=== PATIENT | female | born 1980 | race Caucasian/White ===

== ENCOUNTER 2016-10-16 18:28 | Emergency (ER) | payer BC ==
[~2016-10-16] VITALS: Ht 175.3 cm; Wt 78.0 kg
[2016-10-16 18:45] VITALS: TEMP 37.1; Ht 175.3 cm; Wt 78.0 kg
[2016-10-16] MEDS ORDERED: LEVOIUD INT UTER (19:11)
[2016-10-16] MEDS ORDERED: LORA10TA5 PO (19:11)
[2016-10-16] MEDS ORDERED: MULT1CHW44 PO (19:11)
--- NOTE | 2016-10-16 19:11 | EMERGENCY ROOM VISIT NOTE ---
History First contact with patient: 18:50 Chief Complaint: FINGER PAIN Stated Complaint: CUT FINGER ON RIGHT HAND History of Present Illness The patient is a 36 year old female who presents to the Emergency Room with complaints of a laceration to her right third finger while slicing squash with a mandolin slicer. The patient denies any significant bleeding. She did apply direct pressure and a bandage, and presents to the emergency department for further evaluation. The patient is [id number]. Tetanus immunization is up-to-date. The patient denies any significant pain on my exam. Review of Systems 6 system review was performed and was negative except for pertinent positives and negatives as indicated in history of present illness Past Medical/Surgical History Medical Problems: (1) Asthma Surgical Problems: (1) No history of previous surgery Family History FH: atrial fibrillation FH: cancer FH: hypertension Social History Smoking Status: Never Smoker Alcohol Use: occasionally Marital Status: Housing Status: lives with family Occupation Status: employed Physical Exam Vital Signs Date Time Temp Pulse Resp B/P Pulse Ox O2 Delivery O2 Flow Rate FiO2 10/16/16 18:45 37.1 86 18 159/91 100 Room Air Physical Exam CONSTITUTIONAL: Healthy and well nourished. Alert and oriented X 3 with positive affect. HEENT: Normocephalic, atraumatic. Pupils equal, round and reactive. NECK: Full active range of motion without discomfort. MUSCULOSKELETAL: Examination of the right third finger shows a small 5 mm diameter avulsion laceration over the dorsal PIP joint. Minimal bleeding is noted. Patient is able to flex and extend the finger without any significant discomfort. Collateral ligaments are intact. The refill is less than 2 seconds. INTEGUMENTARY: No rash or other significant dermatologic conditions noted. NEUROLOGIC: Right third fingertip is sensory intact. Medical Decision & Procedures Procedure A Gelfoam pressure dressing was applied. ED Course Patient history and physical exam were performed. Nurse's notes were reviewed. A Gelfoam dressing was applied. The patient was provided additional verbal and written wound care instructions. Ice and elevation for swelling. Ibuprofen or Tylenol as needed for pain. The patient was encouraged to watch for any signs of developing infection, and follow-up with PCP as needed. The patient was happy with plan of care, and voiced understanding of all discharge instructions. Impression Primary Impression: Right middle finger avulsion laceration Departure Information Dispostion Home / Self-Care Forms HOME CARE DOCUMENTATION FORM, IMPORTANT VISIT INFORMATION Patient Instructions My [facility] Additional Instructions Keep dressing in place for 48 hrs, then remove. Soak foam in water until it falls off easily, then clean wound daily, cover with an antibiotic ointment and keep covered until it heals. Return for any signs of infection (increasing redness, swelling, drainage). Ice and elevate for swelling and pain. Ibuprofen 600 mg and/or Tylenol 1000 mg every 6 hrs as needed for pain.
[2016-10-16] MEDS ORDERED: GELATIN SPONGE 12-7MM EXT ONE (19:15)
[2016-10-16 19:27] VITALS: BP 135/86; PULSE 79; O2SAT 96
== END 2016-10-16 19:29 | disposition home or self-care (01) ==
LOC: C.EDB 18:31 → C.EDD 19:29
DX: S61.218A Laceration without foreign body of other finger without damage to nail, initial encounter (principal); W26.0XXA Contact with knife, initial encounter; J45.909 Unspecified asthma, uncomplicated

== ENCOUNTER → 2016-11-22 | Outpatient (CLI) | payer BC ==
[~2016-11-22] MED LIST: LEVOIUD INT UTER; LORA10TA5 PO; MULT1CHW44 PO
== END | disposition home or self-care (01) ==
LOC: C.PAPS 09:28
PROVIDERS: ATTEND Obstetrics & Gynecology
DX: Z01.419 Encounter for gynecological examination (general) (routine) without abnormal findings (principal)

== ENCOUNTER 2018-02-09 20:38 | Emergency (ER) | payer BC, OTHER ==
[~2018-02-09] VITALS: Ht 172.7 cm; Wt 74.8 kg
[~2018-02-09 20:38] MED LIST changes: +LEVO1IUD2 INT UTER; -LEVOIUD INT UTER; -LORA10TA5 PO; +LORA10TA6 PO
[2018-02-09 20:49] VITALS: TEMP 36.8; Ht 172.7 cm; Wt 74.8 kg
[2018-02-09] MEDS ORDERED: SODIUM CHLORIDE 0.9% 1000ML 1,000 ML IV STA (21:14)
[2018-02-09 21:37] VITALS: O2SAT 98
--- NOTE | 2018-02-09 21:46 | DIAGNOSTIC IMAGING REPORT ---
SINGLE VIEW CHEST CLINICAL HISTORY: Weakness. Change in mental status. FINDINGS: An AP, portable, upright chest radiograph is obtained. No prior studies are available for comparison at the time of dictation. The examination is degraded by portable technique and patient rotation. The cardiomediastinal silhouette is unremarkable. The lungs and pleural spaces are clear. No pneumothorax is seen. The bony thorax is grossly intact. IMPRESSION: No active disease in the chest. Electronically signed by: Murray Monsivais M.D. 02/09/2018 9:45 PM Dictated Date/Time: 02/09/2018 9:45 PM
[2018-02-09 21:48] LABS: BASO % 0.2 %; BASO ABS # 0.02 K/uL (0-0.2); EOS % 0.9 %; EOS ABS # 0.09 K/uL (0-0.5); HEMATOCRIT 41.9 % (37-47); HEMOGLOBIN 14.4 g/dL (12.0-16.0); IG# 0.01 K/uL (0.00-0.02); LYMPH % 25.5 %; LYMPH ABS # 2.48 K/uL (1.2-3.4); MEAN CORPUSCULAR HEMOGLOBIN 30.3 pg (25-34); MEAN CORPUSCULAR HGB CONC 34.4 g/dl (32-36); MEAN PLATELET VOLUME 12.4 fL (7.4-10.4); MONO ABS # 0.68 K/uL (0.11-0.59); NEUT % 66.3 %; NEUT ABS # 6.44 K/uL (1.4-6.5); PLATELET COUNT 199 K/uL (130-400); RED CELL DISTRIBUTION WIDTH CV 13.4 % (11.5-14.5); RED CELL DISTRIBUTION WIDTH SD 43.2 fL (36.4-46.3); WHITE BLOOD COUNT 9.72 K/uL (4.8-10.8)
--- NOTE | 2018-02-09 21:53 | EMERGENCY ROOM VISIT NOTE ---
History Report prepared by Kerry: Marty Grossman Under the Supervision of: Thalia ShipleyO. First contact with patient: 21:02 Chief Complaint: ILLNESS Stated Complaint: DIZZINES, RAPID PULSE, SOB, L ARM TINGLING History of Present Illness The patient is a 37 year old female who presents to the Emergency Room with complaints of constantly feeling very fatigued, weak, and off-balance beginning today. The patient reports that she also had these symptoms earlier this week, and the symptoms lasted 8 hours at that time. She reports that she also has a headache and ringing in the ears. She also notes tightness in her chest, but reports this is not abnormal for her due to her allergies. She states that her symptoms were possibly improved upon arrival to the ER. She states that overall she feels "not right." She notes that she becomes more dizzy with walking. She states that she does not feel like the room is spinning, only that she feels off -balance. The patient notes that she stood up quickly and had to stabilize herself before moving. She denies neck pain or loss of consciousness, but states that she felt like she might have been close to passing out. The patient denies any surgeries within the past 10 years or recent travel. She states that she drinks 3-4 alcohol per week. Source of History: patient Onset: today Position: other (global) Quality: other (fatigue, weakness, feeling off-balance) Timing: constant Associated Symptoms: + headache, No LOC, No neck pain Note: ringing in ears Review of Systems See HPI for pertinent positives & negatives. A total of 10 systems reviewed and were otherwise negative. Past Medical & Surgical Medical Problems: (1) Asthma Surgical Problems: (1) No history of previous surgery Family History FH: atrial fibrillation FH: cancer FH: hypertension Social History Smoking Status: Never Smoker Alcohol Use: occasionally Marital Status: Housing Status: lives with family Occupation Status: employed Current/Historical Medications Scheduled Azelastine Hcl-Fluticasone Pro (Dymista), 1-2 SPRY GABRIELLE BID Fluticasone Propionate (Flovent Hfa), 1-2 PUFFS INH DAILY Levonorgestrel (Iud) (Mirena), 20 MCG INT UTER UD Loratadine (Claritin), 10 MG PO DAILY Multiple Vitamins W/ Minerals (Airborne Gummies), 1 TAB PO DAILY Probiotic Product (Probiotic), 1 CAP PO DAILY Allergies Coded Allergies: Amoxicillin (Verified Allergy, Intermediate, " FULL BODY RASH", 02/09/18) Sulfa Antibiotics (Verified Allergy, Intermediate, Hives, 10/16/16) Physical Exam Vital Signs Date Time Temp Pulse Resp B/P (MAP) Pulse Ox O2 Delivery O2 Flow Rate FiO2 02/09/18 22:39 74 20 116/72 98 02/09/18 21:45 86 20 127/88 98 Room Air 02/09/18 21:37 98 Room Air 02/09/18 21:37 98 Room Air 02/09/18 21:12 96 02/09/18 20:49 36.8 102 20 148/88 100 Room Air Physical Exam GENERAL: Patient is awake, alert, and in no acute distress. Patient is resting comfortably and showing no signs of anxiety EYES: The conjunctivae are clear. The pupils are round and reactive. EARS, NOSE, MOUTH AND THROAT: The nose is without any evidence of any deformity. Mucous membranes are moist. Tongue is midline. TMs are clear bilaterally. NECK: The neck is nontender and supple. RESPIRATORY: Normal respiratory effort is noted. There is no evidence of wheezing rhonchi or rales to auscultation. CARDIOVASCULAR: Regular rate and rhythm noted. There no murmurs rubs or gallops normal S1 normal S2 GASTROINTESTINAL: The abdomen is soft. Bowel sounds are present in all quadrants. Abdomen is nontender. MUSCULOSKELETAL/EXTREMITIES: There is no evidence of gross deformity. Full range of motion is noted in the hips and shoulders. SKIN: There is no obvious evidence of any rash. There are no petechiae, pallor or cyanosis noted. NEUROLOGIC: Patient is awake alert and oriented x3. Strength is symmetric. Patellar reflexes are 2+ bilaterally. Medical Decision & Procedures ER Provider Diagnostic Interpretation: Radiology results as stated below per my review and radiologist interpretation: SINGLE VIEW CHEST CLINICAL HISTORY: Weakness. Change in mental status. FINDINGS: An AP, portable, upright chest radiograph is obtained. No prior studies are available for comparison at the time of dictation. The examination is degraded by portable technique and patient rotation. The cardiomediastinal silhouette is unremarkable. The lungs and pleural spaces are clear. No pneumothorax is seen. The bony thorax is grossly intact. IMPRESSION: No active disease in the chest. Electronically signed by: Murray Monsivais M.D. 02/09/2018 9:45 PM Dictated Date/Time: 02/09/2018 9:[address] SCAN OF THE BRAIN WITHOUT IV CONTRAST CLINICAL HISTORY: Weakness. Change in mental status. Dizziness. Left arm numbness. COMPARISON STUDY: No priors. TECHNIQUE: Unenhanced axial CT scan of the brain is performed from the vertex to the skull base. A dose lowering technique was utilized adhering to the principles of ALARA. CT DOSE: 580.48 mGy.cm FINDINGS: Brain parenchyma: The brain parenchyma is normal in appearance. There is no hemorrhage, mass effect, or evidence of acute territorial ischemia by CT criteria. Blanca-white matter is preserved. No extra-axial fluid collection is seen. Ventricles, sulci, cisterns: Normal in configuration. Intracranial vasculature: The visualized intracranial vasculature at the skull base is normal in appearance. Calvarium: Unremarkable. Sinuses and mastoids: The visualized paranasal sinuses are clear. The mastoid air cells are well pneumatized. Orbits: The bony orbits are grossly intact. IMPRESSION: No acute intracranial abnormality. Electronically signed by: Murray Monsivais M.D. 02/09/2018 10:01 PM Dictated Date/Time: 02/09/2018 9:59 PM Laboratory Results 02/09/18 21:30 Red Blood Count 4.76, Mean Corpuscular Volume 88.0, Mean Corpuscular Hemoglobin 30.3, Mean Corpuscular Hemoglobin Concent 34.4, Mean Platelet Volume 12.4, Neutrophils (%) (Auto) 66.3, Lymphocytes (%) (Auto) 25.5, Monocytes (%) (Auto) 7.0, Eosinophils (%) (Auto) 0.9, Basophils (%) (Auto) 0.2, Neutrophils # (Auto) 6.44, Lymphocytes # (Auto) 2.48, Monocytes # (Auto) 0.68, Eosinophils # (Auto) 0.09, Basophils # (Auto) 0.02 02/09/18 21:30 Test 02/09/18 21:30 02/09/18 21:40 02/09/18 21:42 White Blood Count 9.72 K/uL (4.8-10.8) Red Blood Count 4.76 M/uL (4.2-5.4) Hemoglobin 14.4 g/dL (12.0-16.0) Hematocrit 41.9 % (37-47) Mean Corpuscular Volume 88.0 fL (80-100) Mean Corpuscular Hemoglobin 30.3 pg (25-34) Mean Corpuscular Hemoglobin Concent 34.4 g/dl (32-36) Platelet Count 199 K/uL (130-400) Mean Platelet Volume 12.4 fL (7.4-10.4) Neutrophils (%) (Auto) 66.3 % Lymphocytes (%) (Auto) 25.5 % Monocytes (%) (Auto) 7.0 % Eosinophils (%) (Auto) 0.9 % Basophils (%) (Auto) 0.2 % Neutrophils # (Auto) 6.44 K/uL (1.4-6.5) Lymphocytes # (Auto) 2.48 K/uL (1.2-3.4) Monocytes # (Auto) 0.68 K/uL (0.11-0.59) Eosinophils # (Auto) 0.09 K/uL (0-0.5) Basophils # (Auto) 0.02 K/uL (0-0.2) RDW Standard Deviation 43.2 fL (36.4-46.3) RDW Coefficient of Variation 13.4 % (11.5-14.5) Immature Granulocyte % (Auto) 0.1 % Immature Granulocyte # (Auto) 0.01 K/uL (0.00-0.02) Prothrombin Time 11.1 SECONDS (9.0-12.0) Prothromb Time International Ratio 1.1 (0.9-1.1) Activated Partial Thromboplast Time 26.1 SECONDS (21.0-31.0) Partial Thromboplastin Ratio 1.0 Anion Gap 7.0 mmol/L (3-11) Est Creatinine Clear Calc Drug Dose 89.6 ml/min Estimated GFR () 100.0 Estimated GFR (Non- 86.3 BUN/Creatinine Ratio 22.9 (10-20) Calcium Level 8.9 mg/dl (8.5-10.1) Magnesium Level 2.2 mg/dl (1.8-2.4) Total Bilirubin 0.3 mg/dl (0.2-1) Direct Bilirubin 0.1 mg/dl (0-0.2) Aspartate Amino Transf (AST/SGOT) 16 U/L (15-37) Alanine Aminotransferase (ALT/SGPT) 21 U/L (12-78) Alkaline Phosphatase 41 U/L (45-117) Troponin I < 0.015 ng/ml (0-0.045) Total Protein 7.5 gm/dl (6.4-8.2) Albumin 3.9 gm/dl (3.4-5.0) Thyroid Stimulating Hormone (TSH) 4.050 uIu/ml (0.300-4.500) Human Chorionic Gonadotropin, Qual NEG (NEG) Bedside D-Dimer 248 ng/mlFEU (0-450) Urine Color YELLOW Urine Appearance CLEAR (CLEAR) Urine pH 6.5 (4.5-7.5) Urine Specific Ralph 1.014 (1.000-1.030) Urine Protein NEG (NEG) Urine Glucose (UA) NEG (NEG) Urine Ketones NEG (NEG) Urine Occult Blood NEG (NEG) Urine Nitrite NEG (NEG) Urine Bilirubin NEG (NEG) Urine Urobilinogen NEG (NEG) Urine Leukocyte Esterase NEG (NEG) Laboratory results per my review. Medications Administered Medications (Trade) Dose Ordered Sig/Jesse Route Start Time Stop Time Status Last Admin Dose Admin Sodium Chloride 1,000 ml @ 999 mls/hr Q1H1M STAT IV 02/09/18 21:14 02/09/18 22:14 DC 02/09/18 21:44 999 MLS/HR ECG Per My Interpretation Indication: weakness Rate (beats per minute): 74 Rhythm: normal sinus Findings: no ectopy, other (no acute ST segments) Comparison ECG Date: no prior available ED Course 2106: The patient was evaluated in room C6. A complete history and physical examination were performed. 2113: Ordered Sodium Chloride 1000 ml @ 999 mls/hr IV 2229: Upon reevaluation, the patient is resting. I discussed the results and treatment plan with her. She verbalized agreement of the treatment plan. She was discharged home. Medical Decision Differential diagnosis: Etiologies such as benign positional vertigo, dehydration, hypovolemia, anemia, tumor, infection, hypoglycemia, electrolyte abnormalities, cardiac sources, intracerebral event, toxicologic, neurologic, as well as others were entertained. Nursing notes reviewed. The patient is a 37-year-old female who presented to the emergency department for an evaluation of palpitations as well as chest pain. The patient also describes some shortness of breath. I discussed patient's laboratory and radiographic studies with her. She was treated with IV fluids in the emergency department. The patient's d-dimer is negative. The patient did not have any dysrhythmia while she was in the emergency department. She was encouraged to rest and avoid any strenuous activity. She also encouraged to continue all medications as prescribed and return to the emergency department immediately if symptoms change worsen or the need arises. Medication Reconcilliation Current Medication List: was personally reviewed by me Blood Pressure Screening Patient's blood pressure: Elevated blood pressure Blood pressure disposition: Referred to PCP Impression Primary Impression: Dizziness Additional Impression: Palpitations Scribe Attestation The scribe's documentation has been prepared under my direction and personally reviewed by me in its entirety. I confirm that the note above accurately reflects all work, treatment, procedures, and medical decision making performed by me. Departure Information Dispostion Home / Self-Care Referrals Brandon See MD (PCP) Forms HOME CARE DOCUMENTATION FORM, IMPORTANT VISIT INFORMATION, WORK / SCHOOL INSTRUCTIONS Patient Instructions My [facility] Additional Instructions Rest and avoid any strenuous activity. Continue to drink plenty clear liquids. Call your family doctor to schedule a follow-up appointment. You may require further studies such as an echocardiogram and a Holter monitor to further evaluate the cause your symptoms. Return to the emergency department immediately if symptoms change worsen or the need arises. Problem Qualifiers
[2018-02-09 21:58] LABS: INR 1.1 (0.9-1.1); PTT PATIENT 26.1 SECONDS (21.0-31.0)
--- NOTE | 2018-02-09 22:02 | DIAGNOSTIC IMAGING REPORT ---
CT SCAN OF THE BRAIN WITHOUT IV CONTRAST CLINICAL HISTORY: Weakness. Change in mental status. Dizziness. Left arm numbness. COMPARISON STUDY: No priors. TECHNIQUE: Unenhanced axial CT scan of the brain is performed from the vertex to the skull base. A dose lowering technique was utilized adhering to the principles of ALARA. CT DOSE: 580.48 mGy.cm FINDINGS: Brain parenchyma: The brain parenchyma is normal in appearance. There is no hemorrhage, mass effect, or evidence of acute territorial ischemia by CT criteria. Blanca-white matter is preserved. No extra-axial fluid collection is seen. Ventricles, sulci, cisterns: Normal in configuration. Intracranial vasculature: The visualized intracranial vasculature at the skull base is normal in appearance. Calvarium: Unremarkable. Sinuses and mastoids: The visualized paranasal sinuses are clear. The mastoid air cells are well pneumatized. Orbits: The bony orbits are grossly intact. IMPRESSION: No acute intracranial abnormality. Electronically signed by: Murray Monsivais M.D. 02/09/2018 10:01 PM Dictated Date/Time: 02/09/2018 9:59 PM
[2018-02-09 22:19] LABS: ALBUMIN 3.9 gm/dl (3.4-5.0); ALKALINE PHOSPHATASE 41 U/L (45-117); ALT/SGPT 21 U/L (12-78); AST/SGOT 16 U/L (15-37); BLOOD UREA NITROGEN 20 mg/dl (7-18); CALCIUM 8.9 mg/dl (8.5-10.1); CARBON DIOXIDE 23 mmol/L (21-32); CREATININE 0.85 mg/dl (0.60-1.20); GLUCOSE 105 mg/dl (70-99); POTASSIUM 3.9 mmol/L (3.5-5.1); SODIUM 140 mmol/L (136-145); TOTAL PROTEIN 7.5 gm/dl (6.4-8.2)
[2018-02-09 22:39] VITALS: BP 116/72; PULSE 74; O2SAT 98
[2018-02-09] MEDS ORDERED: AZEL30SP NAE (22:41)
[2018-02-09] MEDS ORDERED: FLVHFA110 INH (22:44)
[2018-02-09] MEDS ORDERED: MISCCAP80 PO (22:48)
== END 2018-02-09 22:40 | disposition home or self-care (01) ==
LOC: C.EDB 20:40 → C.EDC 22:40
DX: R42 Dizziness and giddiness (principal); R00.2 Palpitations; R03.0 Elevated blood-pressure reading, without diagnosis of hypertension; J45.909 Unspecified asthma, uncomplicated; Z97.5 Presence of (intrauterine) contraceptive device; Z88.1 Allergy status to other antibiotic agents; Z88.2 Allergy status to sulfonamides